=== PATIENT | female | born 2000 | race Native Hawaiian/Other Pacific Islander ===

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

== ENCOUNTER 2020-07-17 10:48 | Outpatient (CLI) | payer OTHER | END 2020-07-17 22:12 | disposition home or self-care (01) | LOC: LAB 10:48 | PROVIDERS: ATTEND Nurse Practitioner Family | DX: R05 Cough (principal); R50.9 Fever, unspecified; R06.02 Shortness of breath; J02.9 Acute pharyngitis, unspecified; Z11.59 Encounter for screening for other viral diseases | CPT/HCPCS: 87635; G2023; U0003 ==

== ENCOUNTER 2021-07-15 08:59 | Outpatient (CLI) | payer OTHER | END 2021-07-15 19:06 | disposition home or self-care (01) | LOC: US 08:59 | PROVIDERS: ATTEND Nurse Practitioner Family | DX: E03.9 Hypothyroidism, unspecified (principal) ==